=== PATIENT | male | born 1995 | race Two or more races ===

== ENCOUNTER 2019-10-21 20:33 | Emergency (ER) | payer OTHER, SELFPAY ==
[~2019-10-21] VITALS: Ht 177.8 cm; Wt 113.4 kg
[2019-10-21] MEDS ORDERED: ACETAMINOPHEN 325 MG TAB PO ONE ×2 (21:00→21:16)
[2019-10-21 21:27] LABS: Basophils # (auto) 0 10 ^3/uL (0-0.2); Basophils % (auto) 0.1 % (0.0-2.0); Eosinophils # (auto) 0 10 ^3/uL (0-0.8); Eosinophils % (auto) 0.2 % (0.0-7.0); Hematocrit 46.8 % (41.0-53.0); Hemoglobin 15.9 g/dL (13.5-17.5); Lymphocytes # (auto) 2.1 10 ^3/uL (0.4-5.4); Lymphocytes % (auto) 12.7 % (10.0-50.0); Mean Corpuscular Hgb Conc. 34.1 g/dL (32.0-36.0); Mean Corpuscular Volume 93.8 fL (80.0-100.0); Monocytes # (auto) 1.3 10 ^3/uL (0-1.3); Monocytes % (auto) 7.8 % (0.0-12.0); Neutrophils # (auto) 13.4 10 ^3/uL (1.6-8.6); Neutrophils % (auto) 79.2 % (37.0-80.0); Platelet Count (auto) 220 10^3/uL (140-450); Red Blood Cells 4.99 10^6/uL (4.5-5.90); Red Cell Distribution Width 12.8 % (11.8-14.3); White Blood Cell 16.9 10^3/uL (4.4-10.8)
[2019-10-21 21:46] LABS: Calcium 8.6 mg/dL (8.5-10.1); Potassium 3.2 mmol/L (3.5-5.1)
[2019-10-21 21:50] LABS: BUN/Creatinine Ratio 11.3; Bilirubin, Total 2.5 mg/dL (0.2-1.0); Total Protein 8.5 g/dL (6.4-8.2)
[2019-10-21] MEDS ORDERED: cefTRIAXone 1GM/50ML D5W 50 ML IV ONE (22:05)
[2019-10-21 22:30] LABS: Urine Bacteria NONE SEEN /hpf (None Seen); Urine Blood Negative /uL (Negative); Urine Mucus FEW (None Seen); Urine Specific Gravity 1.024 (1.001-1.035); Urine WBC 3 /hpf (0 - 3)
[2019-10-21] MEDS ORDERED: AZITHROMYCIN 500MG/ 250ML 250 ML IV ONE (22:35)
[2019-10-21] MEDS ORDERED: SODIUM CHLORIDE 0.9% 1,000 ML IV ONE (22:45)
[2019-10-22 01:01] VITALS: BP 121/56
[2019-10-22] MEDS ORDERED: ACETAMINOPHEN 500 MG TAB PO ONE (01:30)
== END 2019-10-22 01:39 | disposition home or self-care (01) ==
LOC: ER 20:33
DX: J18.8 Other pneumonia, unspecified organism (principal); E86.0 Dehydration; J32.0 Chronic maxillary sinusitis; Z20.828 Contact with and (suspected) exposure to other viral communicable diseases
CPT/HCPCS: 36415; 71045; 80053; 81001; 82728; 85025; 87040; 87070; 87804; 87880; 96361; 96365; 96366; 99284; C9803; J0456; J0696; J7030; U0003; 87635